=== PATIENT | female | born 1980 | race Asian ===

== ENCOUNTER 2016-11-29 06:08 | Inpatient (IN) | payer OTHER ==
[~2016-11-29] VITALS: Ht 154.9 cm; Wt 99.0 kg
[~2016-11-29 06:08] MED LIST: IRON65TA PO; RANI1TAB6 PO
[2016-11-29] MEDS ORDERED: LR 1,000 ML IV SCH ×2 (07:00→09:45)
[2016-11-29] MEDS ORDERED: LACTATED RINGER'S 1000 ML IV ONE (07:00)
[2016-11-29 07:11] LABS: MEAN CORPUSCULAR HEMOGLOBIN 25.2 pg (27.0-33.0); MEAN CORPUSCULAR VOLUME 78.7 fl (80.0-96.0); RED CELL DISTRIBUTION WIDTH 16.4 % (11.5-14.5); WHITE BLOOD COUNT 10.1 K/mm3 (4.0-10.0)
[2016-11-29] MEDS ORDERED: BICITRA 30ML SOLN UDC As Ordered ONE (07:11)
[2016-11-29] MEDS ORDERED: ONDANSETRON 4MG/2ML VIAL (J2405) IV PRN ×3 (07:47→09:45)
[2016-11-29] MEDS ORDERED: NALOXONE INJ 0.4 MG/1 ML VIAL (J2310) IV PRN ×2 (07:47)
[2016-11-29] MEDS ORDERED: METOCLOPRAMIDE INJ 10MG/2ML VIAL (J2765) IV PRN (07:47)
[2016-11-29] MEDS ORDERED: NALBUPHINE HCL 10 MG/ML AMP (J2300) IV PRN ×2 (07:47→09:45)
[2016-11-29] MEDS ORDERED: PHENYLephrine HCL 500 MCG/5 ML (100MCG/ML) SYRINGE (J2370) As Ordered ONE (08:21)
[2016-11-29] MEDS ORDERED: MORPHINE PRES-FREE INJ 10 MG/10 ML VIAL (J2274) As Ordered ONE (08:21)
[2016-11-29] MEDS ORDERED: KETOROLAC 60 MG/2 ML VIAL (J1885) As Ordered ONE (08:22)
[2016-11-29] MEDS ORDERED: OXYTOCIN INJ 10 UNITS/ML VIAL (J2590) As Ordered ONE (08:22)
[2016-11-29] MEDS ORDERED: ePHEDrine SULFATE 25 MG/5 ML(5MG/ML) SYRINGE As Ordered ONE (08:22)
[2016-11-29] MEDS ORDERED: ONDANSETRON 4MG/2ML VIAL (J2405) As Ordered ONE (08:22)
[2016-11-29] MEDS: DOCUSATE SODIUM 100 MG CAP PO SCH ×2 (09:00→20:57)
[2016-11-29] MEDS: PRENATAL VITAMIN TAB PO SCH (09:00)
[2016-11-29] MEDS: LR 1,000 ML IV SCH ×2 (09:14→17:46)
[2016-11-29] MEDS ORDERED: MEASLES,MUMPS,RUBELLA VACCINE INJ (MMR-II) (90707) SC SCH (09:15)
[2016-11-29] MEDS ORDERED: RHOGAM 300 MCG (1500 IU) INJ (J2790) IM SCH (09:15)
[2016-11-29] MEDS ORDERED: PERCOCET 5MG/325MG TAB PO PRN ×2 (09:15→09:45)
[2016-11-29] MEDS ORDERED: fentaNYL 100 MCG/2 ML INJECTION (J3010) IV PRN (09:45)
--- NOTE | 2016-11-29 10:55 | RO ---
DATE OF PROCEDURE: 11/29/2016 PREOPERATIVE DIAGNOSIS: Prior delivery. POSTOPERATIVE DIAGNOSIS: Prior delivery. PROCEDURE: Elective repeat section and incidental left ovarian irregularity removal. SURGEON: Dr. Marcelino Bustamante BLUEPRINT READER: Char Day CNM ANESTHESIA: Spinal. ESTIMATED BLOOD LOSS: 500 mL. DRAINS: Barron catheter with 100 mL of clear urine. FLUID REPLACED: 2000 mL of lactated Ringer's. SPECIMEN: Small left ovarian irregularity. INDICATION FOR PROCEDURE: Prior , did not desire a trial of labor. DESCRIPTION OF OPERATION: The patient was taken to the operating room with an IV in place after informed consent had been previously obtained and her medical history between the time of consent and the date of surgery was verified to not have changed. She was originally consented for a bilateral tubal ligation; however, with our discussion this morning she changed her mind. Her spinal was uneventful. Her prep, Barron catheter and sequential compression device (SCD) placement was also uneventful. She was in the dorsal supine position with a leftward tilt when she was prepped and draped. Quick skin check revealed good anesthesia. A Pfannenstiel skin incision was carried down over her prior incision to the level of the fascia which was nicked in the midline. This fascial incision was then extended bilaterally to the extent of the skin incision. Jessica clamps were placed superiorly. The fascia was tented up and the underlying rectus muscles were dissected off sharply. This was repeated inferiorly without difficulty. With successive spreading with the use of the Kylah clamp, I was able to locate the peritoneum, tent it up, and enter it sharply with Metzenbaum scissors. Quick digital exploration of the intraperitoneal cavity revealed no scar tissue and a gentle stretching maneuver created an adequate peritoneal window. Bladder blade was placed. Bladder flap was easily created and a low transverse uterine incision was performed and stretched to adequacy. Amniotomy at this point revealed clear fluid and the infant's head was easily elevated and with fundal pressure the was easily delivered without difficulty. The was in great shape with spontaneous cry and good tone. The cord was clamped times two and cut. The infant was shown to the parents and walked to the warmer. Cord blood was obtained. Placenta was delivered with Pitocin running and fundal massage. There were some trailing membranes that were removed with ring forceps. The uterus was delivered through the abdomen, wrapped in a warm sponge and the entire uterine cavity was cleared of all clots and debris with two dry sponges. A running suture of #0 Vicryl from left to right in a locked fashion closed the hysterotomy and a running suture of #0 Monocryl was used to imbricate. Hemostasis was noted from the incision. Irrigation was performed behind the uterus and a quick exploration revealed a normal right adnexa. The left fallopian tube was normal. The left ovary however had an area of what looked like possibly clot, however, it was very hard and palpated as hard as a rock actually. Therefore, it was removed with a [place] and Metzenbaum scissors. This was sent to pathology. Cautery and a single figure twelve stitch with a #4-0 Vicryl was used to obtain hemostasis. This was observed for approximately two minutes after the cautery and after the stitch was placed and hemostasis was confirmed. The uterus was then gently replaced into the anatomical state and I confirmed that the left ovarian irregularity that was removed site was not bleeding and the uterine incision also was not bleeding. I reapproximated the rectus muscles and a quick inspection of all rectus bellies revealed hemostasis with a small amount of cautery. The fascia was closed from left to right with a running suture of #0 Vicryl. The subcutaneous tissue was copiously irrigated and made to be hemostatic. This potential space was closed with #2-0 Vicryl. The skin was closed with a running suture of #4-0 Monocryl in a subcuticular fashion from right to left. Steri-Strips and a pressure dressing were placed over the incision and aggressive fundal massage was performed while the patient was under anesthetic block. The patient was transferred to the recovery area in stable condition with an estimated blood loss of 500 mL in stable condition. All counts were correct including sponge, needle and instruments.
[2016-11-29 11:01] VITALS: BP 110/60
[2016-11-29 11:15] VITALS: BP 115/66
[2016-11-29 12:15] VITALS: BP 112/59
[2016-11-29 13:15] VITALS: BP 112/58
[2016-11-29] MEDS ORDERED: KETOROLAC 30 MG/ML VIAL (J1885) IV SCH (14:00)
[2016-11-29] MEDS: KETOROLAC 30 MG/ML VIAL (J1885) IV SCH ×2 (15:23→20:58)
[2016-11-29 18:06] VITALS: BP 114/62
[2016-11-29 22:10] VITALS: BP 99/59
[2016-11-30 02:00] VITALS: BP 106/64
[2016-11-30] MEDS: KETOROLAC 30 MG/ML VIAL (J1885) IV SCH ×2 (03:00→08:45)
[2016-11-30 05:30] VITALS: BP 94/55
[2016-11-30 07:22] LABS: MEAN CORPUSCULAR HEMOGLOBIN 25.7 pg (27.0-33.0); MEAN CORPUSCULAR HGB CONC 32.4 g/dl (32.0-36.5); MEAN CORPUSCULAR VOLUME 79.3 fl (80.0-96.0); RED CELL DISTRIBUTION WIDTH 15.5 % (11.5-14.5)
[2016-11-30] MEDS: PRENATAL VITAMIN TAB PO SCH (08:45)
[2016-11-30] MEDS: DOCUSATE SODIUM 100 MG CAP PO SCH ×2 (08:45→21:00)
[2016-11-30 10:30] VITALS: BP 103/57
[2016-11-30] MEDS: LR 1,000 ML IV SCH (12:39)
[2016-11-30] MEDS: PERCOCET 5MG/325MG TAB PO PRN ×2 (14:21→21:07)
--- NOTE | 2016-11-30 14:41 | IPNPDOC ---
Text Note Date of Service The patient was seen on 11/30/16 at 14:38. NOTE POD1 Prog note Stateszxd oing well, no complaints. Pain controlled. No N/V/D. Tolerating PO. Ambulatory. Voided several times since Barron out early this AM. Brst feeding well. Bonding great. VSSAF CTAB [employer] CDI, bandage removed LE no CCE HCT this AM 28.4, PLT 357 a/p: Doing very well, likely d/c tomorrow. Meds ready in call room. D/C precaution d/w pt, to see me in 1-2 wks for incision check. Sessions MD MORRIS,Sunil, I+O VSSunil I+O Laboratory Tests 11/30/16 06:53 Red Blood Count 3.59 L, Mean Corpuscular Volume 79.3 L, Mean Corpuscular Hemoglobin 25.7 L, Mean Corpuscular Hemoglobin Concent 32.4, Red Cell Distribution Width 15.5 H Vital Signs Date Time Temp Pulse Resp B/P Pulse Ox O2 Delivery O2 Flow Rate FiO2 11/30/16 14:21 18 11/30/16 10:30 98.4 89 103/57 97 11/30/16 05:30 Room Air I&O- Last 24 Hours up to 6 AM 11/30/16 06:00 Intake Total 3738 ml Output Total 2125 ml Balance 1613 ml SESSIONS,NAVIN Crow MD Nov 30, 2016 14:41
[2016-11-30] MEDS ORDERED: IBUPROFEN 800 MG TAB PO SCH (16:00)
[2016-11-30] MEDS: IBUPROFEN 800 MG TAB PO SCH (17:22)
[2016-11-30 17:47] VITALS: BP 138/84
[2016-11-30 22:00] VITALS: BP 113/58
[2016-12-01] MEDS: IBUPROFEN 800 MG TAB PO SCH ×2 (01:34→10:41)
[2016-12-01 05:09] VITALS: BP 125/72
[2016-12-01] MEDS ORDERED: PRENTAB9 PO (08:53)
[2016-12-01] MEDS ORDERED: ACET50TA PO (08:57)
[2016-12-01] MEDS ORDERED: IBUP-1114 PO (08:58)
[2016-12-01] MEDS ORDERED: COLA100C PO ×2 (08:58→10:47)
[2016-12-01] MEDS: DOCUSATE SODIUM 100 MG CAP PO SCH (09:00)
[2016-12-01] MEDS: PRENATAL VITAMIN TAB PO SCH (09:07)
[2016-12-01] MEDS: PERCOCET 5MG/325MG TAB PO PRN (09:08)
[2016-12-01] MEDS ORDERED: OXYC1TAB23 PO (10:47)
== END 2016-12-01 13:30 | disposition home or self-care (01) | DRG 766 ==
LOC: M LDI 06:08 → M OBS 10:46
PROVIDERS: ADMIT Obstetrics & Gynecology; ATTEND Obstetrics & Gynecology
PROC: 0UB10ZX Excision of Left Ovary, Open Approach, Diagnostic (ICD-10-PCS; 2016-11-29)
PROC: 10D00Z1 Extraction of Products of Conception, Low, Open Approach (ICD-10-PCS; principal; 2016-11-29 07:30)
DX: O99.02 Anemia complicating childbirth (principal); Z37.0 Single live birth; O34.219 Maternal care for unspecified type scar from previous cesarean delivery; Z3A.39 39 weeks gestation of pregnancy; D64.9 Anemia, unspecified; O34.83 Maternal care for other abnormalities of pelvic organs, third trimester; N83.202 Unspecified ovarian cyst, left side

== ENCOUNTER → 2017-04-12 | Outpatient (CLI) | payer OTHER ==
[~2017-04-12] MED LIST changes: +ACET50TA PO; +COLA100C3 PO; +E-Z-GAS II EFFERVESCENT PACKET (SODIUM BICARB./CITRIC ACID/SIMETHICONE) As Ordered ONE; +E-Z-HD 98% w/w 340GM SUSP BTL As Ordered ONE; +E-Z-PAQUE 96% w/w SUSP 176GM BTL As Ordered ONE; +IBUP-1114 PO; +OXYC1TAB23 PO; +PRENTAB9 PO; +VITA-130 PO; +VITA100037 PO
--- NOTE | 2017-04-12 17:11 | REP ---
UPPER GI, AIR CONTRAST, AND SMALL BOWEL FOLLOW THROUGH: The procedure was performed under the direct supervision of Dr. Vogel. The images were reviewed with Dr. Vogel. The creasing and cutting press feeder film shows no organomegaly or pathological masses. The intestinal gas pattern is nonspecific. Liquid barium and gas-producing granules were given in the erect position as well as liquid barium in the prone oblique position in order to perform a double contrast upper GI examination. Additionally, liquid barium was given at the end of the examination in order to perform a small bowel follow through. The oral and pharyngeal stages of deglutition are unremarkable. Esophageal transport is prompt and efficient and there is no esophagitis, stricture, mucosal ring or hiatal hernia. The gastroesophageal junction is patulous and there is gastroesophageal reflux demonstrated to the level of the thoracic inlet. The stomach casey are normally outlined. The rugal folds are smooth and regular. There is no gastritis, neoplasm or ulcer disease. The duodenal casey are normally outlined. The mucosal folds are smooth and regular. There is no duodenitis, pancreatitis, peptic ulcer disease or neoplasm. The visualized portion of the proximal small bowel appears normal in course and caliber. The barium column was followed through the small bowel to the level of the terminal ileum. Small bowel transit time is approximately 35 minutes. Ballottement was performed by Dr. Vogel. During fluoroscopy, gentle palpation shows all loops are freely movable and pliable. There are no fixed or angulated loops. The small bowel mucosal pattern is normal in course and caliber. There is no transition to suggest a partial small bowel obstruction. Spot filming of the terminal ileum shows it to be unremarkable. IMPRESSION: The gastroesophageal junction is patulous and there is gastroesophageal reflux demonstrated to the level of the thoracic inlet. Otherwise, unremarkable double contrast upper GI and small bowel follow through examination. 2 minutes and 35 seconds of fluoroscopy time was utilized for this procedure.
== END ==
LOC: M RAD 10:39
PROVIDERS: ATTEND Surgery
DX: R11.2 Nausea with vomiting, unspecified (principal)

== ENCOUNTER → 2017-04-24 | Day surgery (SDC) | payer OTHER ==
[~2017-04-24] VITALS: Ht 154.9 cm; Wt 88.0 kg
[~2017-04-24] MED LIST changes: +BUPIVACAINE/EPIN 0.25% 30 ML VIAL As Ordered ONE; -E-Z-GAS II EFFERVESCENT PACKET (SODIUM BICARB./CITRIC ACID/SIMETHICONE) As Ordered ONE; -E-Z-HD 98% w/w 340GM SUSP BTL As Ordered ONE; -E-Z-PAQUE 96% w/w SUSP 176GM BTL As Ordered ONE; +GLYCOPYRROLATE INJ 0.2 MG/ML 2 ML VIAL As Ordered ONE; +KETOROLAC 30 MG/ML VIAL (J1885) IV SCH; +KETOROLAC 60 MG/2 ML VIAL (J1885) As Ordered ONE; +LIDOCAINE 2% INJ 100 MG/5 ML SDV (FOR ANES.) As Ordered ONE; +LR 1,000 ML IV SCH; +METOCLOPRAMIDE INJ 10MG/2ML VIAL (J2765) As Ordered ONE; +MIDAZOLAM INJ 2 MG/2 ML VIAL (J2250) As Ordered ONE; +MORPHINE 2 MG/ML 1ML SYRINGE IV PRN; +NEOSTIGMINE 1MG/ML 5 ML SYRINGE (J2710) As Ordered ONE; +NORCO, ANEXSIA 5/325MG TABLET (HYDROcodone/ACETAMINOPHEN) PO PRN; +ONDANSETRON 4MG/2ML VIAL (J2405) As Ordered ONE; +ONDANSETRON 4MG/2ML VIAL (J2405) IV PRN; +PERCOCET 5MG/325MG TAB PO PRN; +PROPOFOL 200 MG/20 ML VIAL As Ordered ONE; +ROCURONIUM BROMIDE 50 MG/5 ML VIAL As Ordered ONE; +dexameTHASONE 4 MG/ML 1ML VIAL (J1100) As Ordered ONE; +fentaNYL 100 MCG/2 ML INJECTION (J3010) As Ordered ONE; +fentaNYL 100 MCG/2 ML INJECTION (J3010) IV PRN
[2017-04-24 09:08] LABS: CONTROL LINE UCG INT CTR LINE PRESENT
--- NOTE | 2017-04-24 12:29 | RO ---
DATE OF PROCEDURE: 04/24/2017 PREPROCEDURE DIAGNOSIS: Symptomatic gallstones. POSTPROCEDURE DIAGNOSIS: Symptomatic gallstones. PROCEDURE: Laparoscopic cholecystectomy. SURGEON: Raza Myles MD DESULFURIZER MACHINE: ANESTHESIA: General endotracheal anesthesia. ESTIMATED BLOOD LOSS: Minimal. FLUIDS: Crystalloid. DESCRIPTION OF PROCEDURE: The patient was brought to the operating room and was given general anesthesia. After adequate anesthesia and preoperative antibiotics were given, the patient was prepped and draped in the usual sterile fashion. Next, a supraumbilical incision was made with a skin knife. Blunt dissection was carried down to the fascia and the fascia was grasped with Jessica clamps, elevated, and a Veress needle placed into the abdominal cavity and insufflated to 15 mmHg of pressure. A dilating 10 mm trocar was placed at this time under direct visualization and an epigastric and two midline trocars were placed. The gallbladder was seen, grasped, retracted superiorly. There were numerous adhesions of the omentum up against the gallbladder, which were taken down with hook cautery. The gallbladder was retracted superiorly and the neck of the gallbladder was cleared of the peritoneum with hook cautery circumferentially. The cystic artery was well visualized and was followed up on to the gallbladder wall and was clipped proximally and distally with Endoclips. The cystic artery was well visualized and the cystic duct was visualized coming out of the neck of the gallbladder and was tapered down quite nicely. The cystic plate had been previously exposed posteriorly and no evidence of additional branches of the cystic artery were appreciated or abnormalities were appreciated. Thus, the critical view of safety was achieved prior to clipping the cystic artery and the cystic artery was clipped as well at this point and transected and the gallbladder was removed from the gallbladder bed using electrocautery. This was placed in an Endo Catch bag, brought out through the umbilicus. There were some adhesions of the liver up to the anterior abdominal wall that were taken down with hook cautery was well. No other significant abnormalities were appreciated in the right upper quadrant. The scope was removed under direct visualization. All trocars were removed. The umbilical incision was closed with #0 Vicryl at the fascial layer. All incisions were closed with #4-0 Vicryl. Steri-Strips and dry, sterile dressing was applied. The patient was awakened, extubated, and brought to the recovery room awake, alert, and hemodynamically stable. Sponge and needle counts were correct times two.
[2017-04-24 14:20] VITALS: BP 124/70
== END | disposition home or self-care (01) ==
LOC: M SDC 08:28
PROVIDERS: ATTEND Surgery
DX: K80.18 Calculus of gallbladder with other cholecystitis without obstruction (principal); D64.9 Anemia, unspecified; Z79.899 Other long term (current) drug therapy
CPT/HCPCS: 47562; 84703; 88304; J1100; J1885; J2250; J2405; J2710; J2765; J3010